=== PATIENT | female | born 1950 | race Caucasian/White ===

== ENCOUNTER 2021-11-11 13:16 | Outpatient (CLI) | payer MEDICARE, OTHER, SELFPAY ==
[2021-11-11 14:51] LABS: INR 2.39 (0.8-1.2)
== END 2021-11-11 13:17 | disposition home or self-care (01) ==
LOC: LAB 13:24
PROVIDERS: Visit Provider Internal Medicine
DX: Z00.00 Encounter for general adult medical examination without abnormal findings (principal)
CPT/HCPCS: 85610